=== PATIENT | female | born 1955 | race Caucasian/White ===

== ENCOUNTER 2018-11-01 12:01 | Emergency (ER) | payer OTHER ==
[2018-11-01 12:36] VITALS: BP 135/82; RESP 20; TEMP 98.2
[2018-11-01] MEDS ORDERED: methylPREDNISolone SOD SUCCI 125 MG/2 ML VIAL IV STA (13:27)
[2018-11-01] MEDS ORDERED: IPRATROPIUM-ALBUTEROL 3 ML NEB INHALATION STA (13:27)
--- NOTE | 2018-11-01 13:29 | ED ---
General Adult HPI - General Chief complaint: Shortness of Breath Stated complaint: SOB, chest pain Time Seen by Provider: 11/01/18 13:06 Source: patient, RN notes reviewed Mode of arrival: wheelchair Limitations: no limitations - History of Present Illness Initial comments: Patient is a pleasant 63-year-old female presenting to the emergency department with difficulty in breathing. Patient with chronic COPD and only 20% lung function. Symptoms have been present for years, somewhat worse lately. Patient has a lot of fatigue with any exertion. Patient also complains of chest heaviness which is also been chronic for years. Chest heaviness has not been changed. Patient is becoming frustrated with her symptoms. No associated nausea or diaphoresis. No fevers. Occasional cough. - Related Data Home Medications Medication Instructions Recorded Confirmed Albuterol Nebulized [Ventolin 2.5 mg INHALATION RT-Q4H PRN 11/01/18 11/01/18 Nebulized] Albuterol Sulfate [Proair Hfa] 2 puff INHALATION RT-Q6H PRN 11/01/18 11/01/18 Mometasone/Formoterol [Dulera 100 1 puff INHALATION RT-BID 11/01/18 11/01/18 Mcg/5 Mcg Inhaler] Montelukast [Singulair] 10 mg PO HS 11/01/18 11/01/18 Tiotropium [place] [Spiriva] 1 cap INHALATION RT-DAILY 11/01/18 11/01/18 Previous Rx's Medication Instructions Recorded predniSONE 20 mg PO BID #10 tab 11/01/18 Allergies Allergy/AdvReac Type Severity Reaction Status Date / Time Milk Containing Products Allergy Unknown Verified 11/01/18 13:17 [Dairy] Review of Systems ROS Statement: Those systems with pertinent positive or pertinent negative responses have been documented in the HPI. ROS Other: All systems not noted in ROS Statement are negative. Constitutional: Denies: fever Eyes: Denies: eye pain ENT: Denies: ear pain Respiratory: Reports: as per HPI, dyspnea Cardiovascular: Reports: as per HPI, chest pain Endocrine: Reports: fatigue Gastrointestinal: Denies: nausea Genitourinary: Denies: dysuria Musculoskeletal: Denies: back pain Skin: Denies: rash Neurological: Denies: weakness Past Medical History Past Medical History: COPD History of Any Multi-Drug Resistant Organisms: None Reported Past Surgical History: Section Past Psychological History: Unable to Obtain Smoking Status: Former smoker Past Alcohol Use History: None Reported Past Drug Use History: None Reported - Past Family History Father Family Medical History: Unable to Obtain Mother Family Medical History: Unable to Obtain General Exam Limitations: no limitations General appearance: alert, in no apparent distress Head exam: Present: atraumatic Eye exam: Present: normal appearance Neck exam: Present: normal inspection Respiratory exam: Present: accessory muscle use, decreased breath sounds Cardiovascular Exam: Present: regular rate, normal rhythm GI/Abdominal exam: Present: soft. Absent: tenderness Extremities exam: Present: normal inspection. Absent: pedal edema, calf tenderness Neurological exam: Present: alert Psychiatric exam: Present: normal affect, normal mood Skin exam: Present: normal color Course Vital Signs 11/01/18 11/01/18 11/01/18 12:32 14:15 14:26 Temperature 98.2 F Pulse Rate 76 76 72 Respiratory 20 Rate Blood Pressure 135/82 O2 Sat by Pulse 98 Oximetry Medical Decision Making - Medical Decision Making Patient reevaluated and resting comfortably in bed. Patient is still using some accessory muscles with respirations. Patient is advised admission however refuses. Patient states this is the way she always breathes. Patient states none of her complaints are new and requests discharge home. Patient is hesitant to take steroids however is agreeable to a prescription for symptoms worsen. - Lab Data Result diagrams: 11/01/18 13:30 11/01/18 13:30 Lab Results 11/01/18 11/01/18 11/01/18 Range/Units 13:30 13:30 13:30 WBC 6.9 (3.8-10.6) k/uL RBC 4.76 (3.80-5.40) m/uL Hgb 14.5 (11.4-16.0) gm/dL Hct 43.1 (34.0-46.0) % MCV 90.7 (80.0-100.0) fL MCH 30.5 (25.0-35.0) pg MCHC 33.6 (31.0-37.0) g/dL RDW 14.6 (11.5-15.5) % Plt Count 217 (150-450) k/uL Neutrophils % 68 % Lymphocytes % 22 % Monocytes % 5 % Eosinophils % 2 % Basophils % 1 % Neutrophils # 4.6 (1.3-7.7) k/uL Lymphocytes # 1.5 (1.0-4.8) k/uL Monocytes # 0.4 (0-1.0) k/uL Eosinophils # 0.2 (0-0.7) k/uL Basophils # 0.1 (0-0.2) k/uL PT 11.0 (9.0-12.0) sec INR 1.0 (<1.2) APTT 25.9 (22.0-30.0) sec Sodium 138 (137-145) mmol/L Potassium 4.5 (3.5-5.1) mmol/L Chloride 98 (98-107) mmol/L Carbon Dioxide 27 (22-30) mmol/L Anion Gap 13 mmol/L BUN 13 (7-17) mg/dL Creatinine 0.66 (0.52-1.04) mg/dL Est GFR (CKD-EPI)AfAm >90 (>60 ml/min/1.73 sqM) Est GFR (CKD-EPI)NonAf >90 (>60 ml/min/1.73 sqM) Glucose 110 H (74-99) mg/dL Calcium 9.7 (8.4-10.2) mg/dL Total Bilirubin 0.8 (0.2-1.3) mg/dL AST 30 (14-36) U/L ALT 24 (9-52) U/L Alkaline Phosphatase 55 (38-126) U/L Troponin I (0.000-0.034) ng/mL Total Protein 8.4 H (6.3-8.2) g/dL Albumin 4.8 (3.5-5.0) g/dL 11/01/18 Range/Units 13:30 WBC (3.8-10.6) k/uL RBC (3.80-5.40) m/uL Hgb (11.4-16.0) gm/dL Hct (34.0-46.0) % MCV (80.0-100.0) fL MCH (25.0-35.0) pg MCHC (31.0-37.0) g/dL RDW (11.5-15.5) % Plt Count (150-450) k/uL Neutrophils % % Lymphocytes % % Monocytes % % Eosinophils % % Basophils % % Neutrophils # (1.3-7.7) k/uL Lymphocytes # (1.0-4.8) k/uL Monocytes # (0-1.0) k/uL Eosinophils # (0-0.7) k/uL Basophils # (0-0.2) k/uL PT (9.0-12.0) sec INR (<1.2) APTT (22.0-30.0) sec Sodium (137-145) mmol/L Potassium (3.5-5.1) mmol/L Chloride (98-107) mmol/L Carbon Dioxide (22-30) mmol/L Anion Gap mmol/L BUN (7-17) mg/dL Creatinine (0.52-1.04) mg/dL Est GFR (CKD-EPI)AfAm (>60 ml/min/1.73 sqM) Est GFR (CKD-EPI)NonAf (>60 ml/min/1.73 sqM) Glucose (74-99) mg/dL Calcium (8.4-10.2) mg/dL Total Bilirubin (0.2-1.3) mg/dL AST (14-36) U/L ALT (9-52) U/L Alkaline Phosphatase (38-126) U/L Troponin I <0.012 (0.000-0.034) ng/mL Total Protein (6.3-8.2) g/dL Albumin (3.5-5.0) g/dL - Radiology Data Radiology results: image reviewed (Chest x-ray shows no acute cardio pulmonary process. Advanced bullous emphysematous changes.) Disposition Clinical Impression: Acute exacerbation of chronic obstructive airways disease Disposition: HOME SELF-CARE Condition: Stable Instructions (If sedation given, give patient instructions): COPD (Chronic Obstructive Pulmonary Disease) (ED) Additional Instructions: Please follow-up with your primary care doctor as well as your lung doctor in the next couple days for recheck. Return for difficulty breathing, chest pain, fevers, worsening symptoms or other concerns. Steroid prescription has been sent to [facility]. Prescriptions: predniSONE 20 mg PO BID #10 tab Is patient prescribed a controlled substance at d/c from ED?: No Referrals: Rose Smith MD [STAFF PHYSICIAN] - 1-2 days Facundo Panda MD [STAFF PHYSICIAN] - 1-2 days Time of Disposition: 15:54
[2018-11-01 13:47] LABS: Basophils # (A) 0.1 k/uL (0-0.2); Basophils % (A) 1 %; Eosinophils # (A) 0.2 k/uL (0-0.7); Eosinophils % (A) 2 %; HCT 43.1 % (34.0-46.0); HGB 14.5 gm/dL (11.4-16.0); Lymphocytes # (A) 1.5 k/uL (1.0-4.8); Lymphocytes % (A) 22 %; MCH 30.5 pg (25.0-35.0); MCHC 33.6 g/dL (31.0-37.0); MCV 90.7 fL (80.0-100.0); Mean Platelet Volume 7.1; Monocytes # (A) 0.4 k/uL (0-1.0); Monocytes % (A) 5 %; Neutrophils # (A) 4.6 k/uL (1.3-7.7); Neutrophils % (A) 68 %; Platelet Count 217 k/uL (150-450); RBC 4.76 m/uL (3.80-5.40); RDW 14.6 % (11.5-15.5); WBC 6.9 k/uL (3.8-10.6)
[2018-11-01 14:11] LABS: ALT 24 U/L (9-52); AST 30 U/L (14-36); African American GFR (CKD) >90 (>60 ml/min/1.73 sqM); Albumin 4.8 g/dL (3.5-5.0); Alkaline Phosphatase 55 U/L (38-126); Anion Gap 13 mmol/L; Blood Urea Nitrogen 13 mg/dL (7-17); Calcium 9.7 mg/dL (8.4-10.2); Carbon Dioxide 27 mmol/L (22-30); Chloride 98 mmol/L (98-107); Glucose 110 mg/dL (74-99); Sodium 138 mmol/L (137-145); Total Bilirubin 0.8 mg/dL (0.2-1.3); Total Protein 8.4 g/dL (6.3-8.2)
[2018-11-01 14:12] LABS: Potassium 4.5 mmol/L (3.5-5.1)
[2018-11-01 14:20] LABS: Partial Thromboplastin Time 25.9 sec (22.0-30.0)
[2018-11-01 14:27] VITALS: PULSE 72
--- NOTE | 2018-11-01 15:09 | XR ---
EXAMINATION TYPE: XR chest 2V DATE OF EXAM: 11/01/2018 COMPARISON: 05/29/2016 HISTORY: Shortness of breath TECHNIQUE: Frontal and lateral views of the chest are obtained. FINDINGS: There is pulmonary hyperinflation and extensive emphysematous changes of the lungs with nu merous bulla seen. There is enlargement of the horacio chronically that likely relates to pulmonary juan luis ry hypertension. Narrowing of the mediastinum is on the basis of COPD. Mild multilevel degenerative c hanges of the spine. No new focal consolidation, pleural effusion or pneumothorax. Generalized osseou s demineralization. Patient's nipple shadows overlie the chest on the frontal view. IMPRESSION: No acute cardiopulmonary pathology, however there is advanced bullous emphysematous egan ges of the lungs.
== END 2018-11-01 16:14 | disposition home or self-care (01) ==
LOC: EC 12:01
DX: J44.1 Chronic obstructive pulmonary disease with (acute) exacerbation (principal); Z79.899 Other long term (current) drug therapy; Z91.011 Allergy to milk products; Z87.891 Personal history of nicotine dependence
CPT/HCPCS: 36415; 94640; 93005; 80053; 84484; 85025; 85610; 85730; 71046; 99285; 96374; J2930

== ENCOUNTER 2021-04-19 15:29 | Inpatient (IN) | payer OTHER ==
[2021-04-19] MEDS ORDERED: ALBUTEROL HFA INHALER INHALATION STA (16:14)
[2021-04-19] MEDS ORDERED: methylPREDNISolone SOD SUCCI 125 MG/2 ML VIAL IV STA (16:14)
[2021-04-19] MEDS ORDERED: SODIUM CHLORIDE 0.9% 500 ML 500 ML IV STA (16:14)
[2021-04-19] MEDS ORDERED: IPRATROPIUM-ALBUTEROL 3 ML NEB INHALATION STA (16:14)
[2021-04-19 16:40] LABS: Basophils % (A) 1 %; Eosinophils # (A) 0.1 k/uL (0-0.7); Eosinophils % (A) 2 %; HCT 34.6 % (34.0-46.0); HGB 10.9 gm/dL (11.4-16.0); Hypochromasia Slight; Lymphocytes # (A) 0.7 k/uL (1.0-4.8); Lymphocytes % (A) 12 %; MCH 29.9 pg (25.0-35.0); MCHC 31.6 g/dL (31.0-37.0); MCV 94.6 fL (80.0-100.0); Mean Platelet Volume 7.7; Monocytes # (A) 0.4 k/uL (0-1.0); Monocytes % (A) 7 %; Neutrophils # (A) 4.6 k/uL (1.3-7.7); Neutrophils % (A) 77 %; Platelet Count 220 k/uL (150-450); RBC 3.65 m/uL (3.80-5.40); WBC 5.9 k/uL (3.8-10.6)
[2021-04-19] MEDS ORDERED: ONDANSETRON 4 MG/2 ML VIAL IM STA (16:42)
[2021-04-19 16:48] LABS: ALT 12 U/L (4-34); AST 27 U/L (14-36); African American GFR (CKD) >90 (>60 ml/min/1.73 sqM); Alkaline Phosphatase 47 U/L (38-126); Blood Urea Nitrogen 15 mg/dL (7-17); Calcium 9.3 mg/dL (8.4-10.2); Chloride 92 mmol/L (98-107); Glucose 104 mg/dL (74-99); Magnesium 1.8 mg/dL (1.6-2.3); Non-African American GFR(CKD) >90 (>60 ml/min/1.73 sqM); Potassium 4.2 mmol/L (3.5-5.1); Sodium 140 mmol/L (137-145); Total Bilirubin 0.5 mg/dL (0.2-1.3); Total Protein 6.8 g/dL (6.3-8.2)
[2021-04-19 16:54] LABS: Anion Gap 6 mmol/L; Partial Thromboplastin Time 24.2 sec (22.0-30.0); Prothrombin Time 11.2 sec (9.0-12.0)
[2021-04-19 17:07] LABS: Carbon Dioxide 42 mmol/L (22-30)
[2021-04-19 17:16] LABS: Influenza A Not Detected (Not Detectd); Influenza B Not Detected (Not Detectd)
--- NOTE | 2021-04-19 17:29 | XR ---
EXAMINATION TYPE: XR chest 2V DATE OF EXAM: 04/19/2021 COMPARISON: November 01, 2018 HISTORY: Short of breath TECHNIQUE: Single view FINDINGS: There is pulmonary hyperinflation with flattening of the diaphragm. Heart size is normal. T here are no hilar masses. There are chest leads. IMPRESSION: COPD. No acute lung disease. No change.
[2021-04-19] MEDS ORDERED: METOCLOPRAMIDE 5 MG/ML 2 ML VIAL IVP STA (18:13)
--- NOTE | 2021-04-19 18:30 | CT ---
EXAMINATION TYPE: CT chest angio for PE DATE OF EXAM: 04/19/2021 COMPARISON: HISTORY: Difficulty breathing. CT DLP: 248.7 mGycm Automated exposure control for dose reduction was used. CONTRAST: Performed with IV Contrast, patient injected with 100ml mL of Isovue 370. Images obtained from the thoracic inlet to the diaphragm with IV contrast. There are Three-D postproc essed images. There is diffuse patchy pulmonary emphysema. There is reticular infiltrates in the posterior lung fie lds. Heart size is normal. There is no pericardial effusion. There are no hilar masses. There is no m ediastinal adenopathy. There is no evidence of filling defect in the pulmonary arteries. Thoracic aor ta is atheromatous. The ascending aorta measures 3.2 cm. Thoracic spine is intact. Sternum is intact. IMPRESSION: No evidence of pulmonary embolism. Bullous pulmonary emphysema and interstitial pulmonary fibrotic changes. There is clearing of the inf iltrate at the lung bases compared to the old exam.
--- NOTE | 2021-04-19 18:32 | ED ---
General Adult HPI - General Chief complaint: Shortness of Breath Stated complaint: TUTU Time Seen by Provider: 04/19/21 15:59 Source: patient, EMS, RN notes reviewed, old records reviewed Mode of arrival: EMS Limitations: physical limitation - History of Present Illness Initial comments: Patient is a 65-year-old female with past medical history remarkable for chronic COPD on 4 L nasal cannula who presents emergency department over concern for somewhat worsening shortness of breath over the last few days. She states that over the last few weeks she has been chronically having weakness, shortness of breath. She has been attempting to use her updraft at home without much improvement. States she has some mild nasal drainage. Denies any Covid vacc inations. Was vaccinated for influenza. Endorses occasional cough. Does not follow up with a business intern. Seems to get short of breath with any exertion. Is concerned regarding this. His no other acute complaints at this time. No history of blood clots. No cardiac history. Like to be evaluated for her pulmonary complaints. - Related Data Home Medications Medication Instructions Recorded Confirmed Albuterol Nebulized [Ventolin 2.5 mg INHALATION RT-QID PRN 11/01/18 04/19/21 Nebulized] Albuterol Sulfate [Proair Hfa] 2 puff INHALATION RT-Q6H PRN 11/01/18 04/19/21 Montelukast [Singulair] 10 mg PO HS 11/01/18 04/19/21 Aspirin EC [Ecotrin Low Dose] 81 mg PO DAILY 04/19/21 04/19/21 Esomeprazole Magnesium [NexIUM 20 mg PO DAILY 04/19/21 04/19/21 24Hr] Fluticasone Propionate [Flovent 1 puff INHALATION RT-BID PRN 04/19/21 04/19/21 Hfa 220 mcg] rOPINIRole HCL [Requip] 0.5 mg PO HS 04/19/21 04/19/21 Allergies Allergy/AdvReac Type Severity Reaction Status Date / Time Milk Containing Products Allergy Unknown Verified 04/19/21 17:17 [Dairy] Review of Systems ROS Statement: Those systems with pertinent positive or pertinent negative responses have been documented in the HPI. Review of Systems: CONST: Denies fever EYES: Denies blurry vision ENT: Denies nasal congestion C/V: Denies Chest pain RESP: Endorses worsening exertional dyspnea. GI: Denies abdominal pain : Denies dysuria SKIN: Denies rash. MSK: Denies joint pain. NEURO: Denies headache ROS Other: All systems not noted in ROS Statement are negative. Past Medical History Past Medical History: COPD Additional Past Medical History / Comment(s): Rhinonitis, restless leg syndrome, History of Any Multi-Drug Resistant Organisms: None Reported Past Surgical History: Section Past Psychological History: Anxiety Smoking Status: Former smoker Past Alcohol Use History: None Reported Past Drug Use History: None Reported - Past Family History Father Family Medical History: Unable to Obtain Mother Family Medical History: Unable to Obtain General Exam - General Exam Comments Initial Comments: General: Appears in no acute distress. HEAD: Normal with no signs of head trauma. EYES: PERRLA, EOMI, conjunctiva normal, no discharge. ENT: Hearing grossly intact, normal oropharynx. RESPIRATORY: No obvious wheezing. She is moving breath sounds bilaterally but it is reduced. No obvious rhonchi. Not Hypoxic on her normal 3-4 L oxygen via nasal cannula. No increased work of breathing. C/V: Regular rate and rhythm. S1 and S2 auscultated, no edema, peripheral pulses 2+ and intact throughout ABD: Abd is soft, nontender, nondistended EXT: Normal range of motion, no obvious deformity SKIN: No rashes or lesions observed on exposed skin. NEURO: Alert and oriented times 4 Limitations: physical limitation Course Vital Signs 04/19/21 04/19/21 04/19/21 15:30 15:40 16:43 Temperature 97.0 F L Pulse Rate 95 85 Respiratory 22 18 Rate Blood Pressure 171/84 149/75 O2 Sat by Pulse 96 96 Oximetry 04/19/21 04/19/21 04/19/21 17:01 17:10 17:43 Temperature Pulse Rate 84 88 87 Respiratory 18 18 18 Rate Blood Pressure 125/75 O2 Sat by Pulse 97 Oximetry 04/19/21 19:00 Temperature Pulse Rate 88 Respiratory 18 Rate Blood Pressure 128/73 O2 Sat by Pulse 98 Oximetry Procedures - [place] Protocol (Time Out) Nurse: Pushpa Higuera Medical Decision Making - Medical Decision Making Based on the patient's presentation and physical exam, I'm concerned for COPD exacerbation, but cannot rule out infectious or cardiopulmonary cause for her worsening symptoms. It could be an does seem to be a likely chronic process. She'll be treated for her COPD exacerbation with IV steroids and breathing treatments. We will obtain Covid and flu swabs. Cardio pulmonary workup with labs will be obtained including d-dimer and BNP. Chest x-ray will be obtained. She was in agreement this plan. She'll be given Zofran for nausea. EKG showed no signs of acute ischemia. No change when compared to prior EKGs. Chest x-ray revealed no acute lung disease. Laboratory studies were remarkable for a very mild normocytic anemia with a hemoglobin of 10.9 which appears to be chronic. D-dimer is slightly elevated to 0.71. Laboratory studies are remarkable for an elevated CO2 to 42. Troponin is negative. BNP is negative. Covid and flu swabs are negative. Remainder the workup is unremarkable. Due to the patient's elevated d-dimer, I did recommend that we obtain CT angiogram to rule out pulmonary embolism. She was in agreement this plan. We did review the other laboratory studies and imaging. Lung sounds are slightly improved at this time. DuoNeb will be ordered for her. CT angiogram revealed no acute pulmonary embolism. There is pulmonary emphysema as well as interstit ial pulmonary fibrotic changes. I discussed with her that her chronic disease may be getting worse and which is why she is having worsening shortness of breath. If she does not follow up with pulmonology, still appears to be having a COPD exacerbation, would like to admitted to the hospital for further treatment. She was in agreement this plan. We will continue IV steroids and breathing treatments. Consult will be placed to Dr. Staton of pulmonology. Patient was in agreement this plan. I spoke with [facility] of [facility] who accepted the patient. Patient was therefore admitted to Dr. Cuba in stable condition. - Lab Data Result diagrams: 04/19/21 16:27 04/19/21 16:27 Lab Results 04/19/21 04/19/21 04/19/21 Range/Units 16:27 16:27 16:27 WBC 5.9 (3.8-10.6) k/uL RBC 3.65 L (3.80-5.40) m/uL Hgb 10.9 L (11.4-16.0) gm/dL Hct 34.6 (34.0-46.0) % MCV 94.6 (80.0-100.0) fL MCH 29.9 (25.0-35.0) pg MCHC 31.6 (31.0-37.0) g/dL RDW 13.0 (11.5-15.5) % Plt Count 220 (150-450) k/uL MPV 7.7 Neutrophils % 77 % Lymphocytes % 12 % Monocytes % 7 % Eosinophils % 2 % Basophils % 1 % Neutrophils # 4.6 (1.3-7.7) k/uL Lymphocytes # 0.7 L (1.0-4.8) k/uL Monocytes # 0.4 (0-1.0) k/uL Eosinophils # 0.1 (0-0.7) k/uL Basophils # 0.0 (0-0.2) k/uL Hypochromasia Slight PT 11.2 (9.0-12.0) sec INR 1.0 (<1.2) APTT 24.2 (22.0-30.0) sec D-Dimer 0.71 H (<0.60) mg/L FEU Sodium 140 (137-145) mmol/L Potassium 4.2 (3.5-5.1) mmol/L Chloride 92 L (98-107) mmol/L Carbon Dioxide 42 H* (22-30) mmol/L Anion Gap 6 mmol/L BUN 15 (7-17) mg/dL Creatinine 0.58 (0.52-1.04) mg/dL Est GFR (CKD-EPI)AfAm >90 (>60 ml/min/1.73 sqM) Est GFR (CKD-EPI)NonAf >90 (>60 ml/min/1.73 sqM) Glucose 104 H (74-99) mg/dL Plasma Lactic Acid Kelvin (0.7-2.0) mmol/L Calcium 9.3 (8.4-10.2) mg/dL Magnesium 1.8 (1.6-2.3) mg/dL Total Bilirubin 0.5 (0.2-1.3) mg/dL AST 27 (14-36) U/L ALT 12 (4-34) U/L Alkaline Phosphatase 47 (38-126) U/L Troponin I (0.000-0.034) ng/mL NT-Pro-B Natriuret Pep pg/mL Total Protein 6.8 (6.3-8.2) g/dL Albumin 4.0 (3.5-5.0) g/dL Influenza Type A (PCR) (Not Detectd) Influenza Type B (PCR) (Not Detectd) RSV (PCR) (Not Detectd) SARS-CoV-2 (PCR) (Not Detectd) 04/19/21 04/19/21 04/19/21 Range/Units 16:27 16:27 16:27 WBC (3.8-10.6) k/uL RBC (3.80-5.40) m/uL Hgb (11.4-16.0) gm/dL Hct (34.0-46.0) % MCV (80.0-100.0) fL MCH (25.0-35.0) pg MCHC (31.0-37.0) g/dL RDW (11.5-15.5) % Plt Count (150-450) k/uL MPV Neutrophils % % Lymphocytes % % Monocytes % % Eosinophils % % Basophils % % Neutrophils # (1.3-7.7) k/uL Lymphocytes # (1.0-4.8) k/uL Monocytes # (0-1.0) k/uL Eosinophils # (0-0.7) k/uL Basophils # (0-0.2) k/uL Hypochromasia PT (9.0-12.0) sec INR (<1.2) APTT (22.0-30.0) sec D-Dimer (<0.60) mg/L FEU Sodium (137-145) mmol/L Potassium (3.5-5.1) mmol/L Chloride (98-107) mmol/L Carbon Dioxide (22-30) mmol/L Anion Gap mmol/L BUN (7-17) mg/dL Creatinine (0.52-1.04) mg/dL Est GFR (CKD-EPI)AfAm (>60 ml/min/1.73 sqM) Est GFR (CKD-EPI)NonAf (>60 ml/min/1.73 sqM) Glucose (74-99) mg/dL Plasma Lactic Acid Kelvin 0.9 (0.7-2.0) mmol/L Calcium (8.4-10.2) mg/dL Magnesium (1.6-2.3) mg/dL Total Bilirubin (0.2-1.3) mg/dL AST (14-36) U/L ALT (4-34) U/L Alkaline Phosphatase (38-126) U/L Troponin I <0.012 (0.000-0.034) ng/mL NT-Pro-B Natriuret Pep 116 pg/mL Total Protein (6.3-8.2) g/dL Albumin (3.5-5.0) g/dL Influenza Type A (PCR) (Not Detectd) Influenza Type B (PCR) (Not Detectd) RSV (PCR) (Not Detectd) SARS-CoV-2 (PCR) (Not Detectd) 04/19/21 Range/Units 16:29 WBC (3.8-10.6) k/uL RBC (3.80-5.40) m/uL Hgb (11.4-16.0) gm/dL Hct (34.0-46.0) % MCV (80.0-100.0) fL MCH (25.0-35.0) pg MCHC (31.0-37.0) g/dL RDW (11.5-15.5) % Plt Count (150-450) k/uL MPV Neutrophils % % Lymphocytes % % Monocytes % % Eosinophils % % Basophils % % Neutrophils # (1.3-7.7) k/uL Lymphocytes # (1.0-4.8) k/uL Monocytes # (0-1.0) k/uL Eosinophils # (0-0.7) k/uL Basophils # (0-0.2) k/uL Hypochromasia PT (9.0-12.0) sec INR (<1.2) APTT (22.0-30.0) sec D-Dimer (<0.60) mg/L FEU Sodium (137-145) mmol/L Potassium (3.5-5.1) mmol/L Chloride (98-107) mmol/L Carbon Dioxide (22-30) mmol/L Anion Gap mmol/L BUN (7-17) mg/dL Creatinine (0.52-1.04) mg/dL Est GFR (CKD-EPI)AfAm (>60 ml/min/1.73 sqM) Est GFR (CKD-EPI)NonAf (>60 ml/min/1.73 sqM) Glucose (74-99) mg/dL Plasma Lactic Acid Kelvin (0.7-2.0) mmol/L Calcium (8.4-10.2) mg/dL Magnesium (1.6-2.3) mg/dL Total Bilirubin (0.2-1.3) mg/dL AST (14-36) U/L ALT (4-34) U/L Alkaline Phosphatase (38-126) U/L Troponin I (0.000-0.034) ng/mL NT-Pro-B Natriuret Pep pg/mL Total Protein (6.3-8.2) g/dL Albumin (3.5-5.0) g/dL Influenza Type A (PCR) Not Detected (Not Detectd) Influenza Type B (PCR) Not Detected (Not Detectd) RSV (PCR) Not Detected (Not Detectd) SARS-CoV-2 (PCR) Not Detected (Not Detectd) - EKG Data -: EKG Interpreted by Me EKG Comments: 12-lead Electrocardiogram Interpretation Note EKG was reviewed and interpreted by myself. 12-lead ECG performed at 1548 is interpreted by me as revealing normal sinus rhythm at a rate of 80 beats per minute. [place] is normal. [place] interval is 128 ms, QRS durations 101 ms, QTc is 396 ms.. There were no ST or T wave abnormalities to suggest myocardial ischemia or injury. R wave progression across the precordium was satisfactory. By my interpretation this EKG is non-diagnostic for acute ischemia. Disposition Clinical Impression: COPD exacerbation, Pulmonary fibrosis, Chronic respiratory failure with hypoxia Disposition: ADMITTED IP TO THIS HOSP Condition: Stable Referrals: Inez Porras DO [Primary Care Provider] - 1-2 days
[2021-04-19] MEDS ORDERED: IBUPROFEN 800 MG TAB PO STA (19:04)
[2021-04-19] MEDS ORDERED: IBUPROFEN 400 MG TAB PO PRN (19:04)
[2021-04-19] MEDS ORDERED: ONDANSETRON 4 MG/2 ML VIAL IVP PRN (19:04)
[2021-04-19] MEDS ORDERED: NALOXONE 0.4 MG/ML 1 ML VIAL IV PRN (19:04)
[2021-04-19] MEDS ORDERED: FLUTICASONE 110 MCG INHALER INHALATION PRN (19:56)
[2021-04-19] MEDS: IPRATROPIUM-ALBUTEROL 3 ML NEB INHALATION SCH (20:11)
[2021-04-19] MEDS: MONTELUKAST 10 MG TAB PO SCH (21:50)
[2021-04-19] MEDS: methylPREDNISolone SOD SUCCI 40 MG/ML 1 ML VIAL IV SCH (23:16)
[2021-04-19] MEDS: HEPARIN SODIUM,PORCINE/PF 5,000 UNIT/0.5 ML SYRINGE SQ SCH (23:18)
[2021-04-20] MEDS: IPRATROPIUM-ALBUTEROL 3 ML NEB INHALATION SCH ×6 (00:10→20:00)
[2021-04-20] MEDS: methylPREDNISolone SOD SUCCI 40 MG/ML 1 ML VIAL IV SCH ×2 (05:56→11:23)
[2021-04-20] MEDS: ASPIRIN 81 MG PO SCH (07:54)
[2021-04-20] MEDS: HEPARIN SODIUM,PORCINE/PF 5,000 UNIT/0.5 ML SYRINGE SQ SCH ×3 (07:54→23:26)
[2021-04-20] MEDS: PANTOPRAZOLE 40 MG TABLET PO SCH (07:54)
[2021-04-20 10:59] VITALS: BMI 20.3
[2021-04-20 12:04] LABS: Basophils # (A) 0 X 10*3/uL (0.00-0.10); Basophils % (A) 0 %; Eosinophils # (A) 0 X 10*3/uL (0.04-0.35); Eosinophils % (A) 0 %; HCT 36.7 % (37.2-46.3); HGB 10.5 g/dL (12.0-15.0); Immature Grans, Automated 0.2 %; Lymphocytes # (A) 0.36 X 10*3/uL (0.90-5.00); Lymphocytes % (A) 7.1 %; MCH 28.4 pg (27.0-32.0); MCHC 28.6 g/dL (32.0-37.0); MCV 99.2 fL (80.0-97.0); Monocytes # (A) 0.07 X 10*3/uL (0.20-1.00); Monocytes % (A) 1.4 %; NRBC Per 100 WBC 0 /100 WBCS (0.0-0.0); Neutrophils # (A) 4.62 X 10*3/uL (1.80-7.70); Neutrophils % (A) 91.3 %; Platelet Count 209 X 10*3/uL (140-440); RDW 12.1 % (11.5-14.5); WBC 5.06 X 10*3/uL (4.50-10.00)
--- NOTE | 2021-04-20 12:15 | P.HPIM ---
History of Present Illness This is a pleasant 65 years old female with past medical history of COPD/emphysema, GERD, restless leg syndrome, Anxiety Presents with progressive dyspnea over few days associated with calcified little phlegm but no chest pain She quit smoking about 6 years ago and denies alcohol or illicit drugs. Pain or vomiting. No dysuria. No headache or weakness or dizziness or numbness. She is on home oxygen of 4 L/m, currently she is at the same dose at 100% saturation however she's quite tachypneic and she cannot talk because of her dyspnea Labs showing only mild anemia with hemoglobin 10.5, d-dimer is elevated 0.7, carbon dioxide is high at 42, rest of BMP and liver enzymes and troponins are unremarkable Influenza, Walden virus and RSV viruses are not detected CTA of the chest showed no pulmonary embolism but emphysema. With fibrotic changes and bullae EKG showing normal sinus rhythm at 80 BPM with no significant ST-T changes She is started on a bronchodilator, Solu-Medrol 40 mg Review of Systems Review of systems CONSTITUTIONAL: No fever, no malaise, no fatigue. HEENT: No recent visual problems or hearing problems. Denied any sore throat. CARDIOVASCULAR: No orthopnea, PND, no palpitations, no syncope. PULMONARY: No chest wall tenderness cough, no hemoptysis. GASTROINTESTINAL: No diarrhea, no nausea, no vomiting, no abdominal pain. Normoactive bowel sounds. NEUROLOGICAL: No headaches, no weakness, no numbness. HEMATOLOGICAL: Denies any bleeding or petechiae. GENITOURINARY: Denies any burning micturition, frequency, or urgency. MUSCULOSKELETAL/RHEUMATOLOGICAL: Denies any joint pain, swelling, or any muscle pain. ENDOCRINE: Denies any polyuria or polydipsia. Past Medical History Past Medical History: COPD, GERD/Reflux, Pneumonia Additional Past Medical History / Comment(s): Rhinonitis, restless leg syndrome, History of Any Multi-Drug Resistant Organisms: None Reported Past Surgical History: Section Past Anesthesia/Blood Transfusion Reactions: No Reported Reaction Past Psychological History: Anxiety Smoking Status: Former smoker Past Alcohol Use History: None Reported Past Drug Use History: None Reported - Past Family History Father Family Medical History: No Reported History, Unable to Obtain Mother Family Medical History: Unable to Obtain Additional Family Medical History / Comment(s): ckd Medications and Allergies Home Medications Medication Instructions Recorded Confirmed Type Albuterol Nebulized [Ventolin 2.5 mg INHALATION RT-QID PRN 11/01/18 04/19/21 History Nebulized] Albuterol Sulfate [Proair Hfa] 2 puff INHALATION RT-Q6H PRN 11/01/18 04/19/21 History Montelukast [Singulair] 10 mg PO HS 11/01/18 04/19/21 History Aspirin EC [Ecotrin Low Dose] 81 mg PO DAILY 04/19/21 04/19/21 History Esomeprazole Magnesium [NexIUM 20 mg PO DAILY 04/19/21 04/19/21 History 24Hr] Fluticasone Propionate [Flovent 1 puff INHALATION RT-BID PRN 04/19/21 04/19/21 History Hfa 220 mcg] rOPINIRole HCL [Requip] 0.5 mg PO HS 04/19/21 04/19/21 History Allergies Allergy/AdvReac Type Severity Reaction Status Date / Time Milk Containing Products Allergy Unknown Verified 04/19/21 17:17 [Dairy] Physical Exam Vitals: Vital Signs Temp Pulse Pulse Resp BP BP Pulse Ox 04/20/21 08:48 84 04/20/21 08:39 84 04/20/21 07:00 98.3 F 79 18 126/74 100 04/20/21 02:14 98.6 F 82 20 107/73 100 04/19/21 23:00 98.4 F 85 20 115/55 100 04/19/21 21:25 98.3 F 88 18 135/73 98 04/19/21 20:21 89 04/19/21 20:13 87 04/19/21 19:00 88 18 128/73 98 04/19/21 17:43 87 18 125/75 97 04/19/21 17:10 88 18 04/19/21 17:01 84 18 04/19/21 16:43 85 18 149/75 96 04/19/21 15:40 22 04/19/21 15:30 97.0 F L 95 22 171/84 96 Intake and Output 04/19/21 04/20/21 04/20/21 22:59 06:59 14:59 Intake Total 120 Balance 120 Intake: Oral 120 Other: # Voids 2 Weight 58.967 kg 58.967 kg GENERAL: The patient is alert and oriented x3, not in any acute distress. Well developed, well nourished. HEENT: Pupils are round and equally reacting to light. EOMI. No scleral icterus. No conjunctival pallor. Normocephalic, atraumatic. No pharyngeal erythema. No thyromegaly. CARDIOVASCULAR: S1 and S2 present. No murmurs, rubs, or gallops. -PULMONARY: Chest is clear to auscultation, no wheezing or crackles. Decreased limited air entry on both sides ABDOMEN: Soft, nontender, nondistended, normoactive bowel sounds. No palpable organomegaly. MUSCULOSKELETAL: No joint swelling or deformity. EXTREMITIES: No cyanosis, clubbing, or pedal edema. NEUROLOGICAL: Gross neurological examination did not reveal any focal deficits. SKIN: No rashes. no petechiae. Results CBC & Chem 7: 04/20/21 06:52 04/19/21 16:27 Labs: Abnormal Lab Results - Last 24 Hours (Table) 04/19/21 04/19/21 04/19/21 Range/Units 16:27 16:27 16:27 RBC 3.65 L (3.80-5.40) m/uL Hgb 10.9 L (11.4-16.0) gm/dL Lymphocytes # 0.7 L (1.0-4.8) k/uL D-Dimer 0.71 H (<0.60) mg/L FEU Chloride 92 L (98-107) mmol/L Carbon Dioxide 42 H* (22-30) mmol/L Glucose 104 H (74-99) mg/dL Thrombosis Risk Factor Assmnt - Choose All That Apply Any of the Below Risk Factors Present?: Yes Each Factor Represents 1 point: Abnormal pulmonary function (COPD) Other Risk Factors: Yes Each Risk Factor Represents 2 Points: Age 61-74 years Other congenital or acquired thrombophilia - If yes, enter type in comment: No Thrombosis Risk Factor Assessment Total Risk Factor Score: 3 Thrombosis Risk Factor Assessment Level: Moderate Risk Assessment and Plan Assessment: Acute COPD exacerbation Chronic hypoxic respiratory failure Anxiety History of restless leg syndrome History of GERD Plan: This is a pleasant 65 years old female who presents with COPD exacerbation Continue with steroids, IV salmeterol Pulmonary consult Labs and medication were reviewed.. Continue same treatment. Continue with symptomatic treatment. Resume home medication. Monitor lytes and vitals. DVT and GI prophylaxis. Further recommendationsas per clinical course of the patient DVT prophylaxis: Subcutaneous heparin GI Prophylaxis: Pepcid PT/OT: Pending
[2021-04-20 12:17] LABS: Albumin 4.5 g/dL (3.8-4.9); Albumin/Globulin Ratio 1.93 (1.60-3.17); BUN/Creat Ratio 19.78 Ratio (12.00-20.00); Blood Urea Nitrogen 12.4 mg/dL (9.0-27.0); Calcium 9.7 mg/dL (8.7-10.3); Carbon Dioxide 38.8 mmol/L (20.0-27.5); Globulin 2.3 g/dL (1.6-3.3); Non-African American GFR(CKD) 94.9 (60.0-200.0); Potassium 4.8 mmol/L (3.5-5.5); Total Bilirubin 0.3 mg/dL (0.30-1.20); Total Protein 6.8 g/dL (6.2-8.2)
[2021-04-20] MEDS: INSULIN ASPART (NovoLOG) 100 UNIT/ML VIAL SQ SCH ×3 (12:27→21:34)
[2021-04-20 12:28] LABS: Glucose,Whole Blood 163 mg/dL (75-99)
--- NOTE | 2021-04-20 15:01 | P.CNPUL ---
History of Present Illness Consult date: 04/20/21 Requesting physician: [place] Reason for consult: dyspnea, COPD, abnormal CXR/CT Chief complaint: Shortness of breath History of present illness: This is a pleasant 65-year-old female patient who follows with Dr. Snowden as her primary care provider. She has a history of anxiety, restless leg syndrome, gastroesophageal reflux disease, dementia. She also has a history of severe oxygen dependent chronic obstructive pulmonary disease and is on home oxygen at 4 L/m per nasal cannula. She has smoked for approximately 47 years at 1 pack per day. She quit at age 61. She is maintained on pro-air, Singulair, Ventolin in the outpatient setting. She has not been seen in our office. She was seen here in the prior hospitalization in 2017. At that time she was noted to have severe emphysematous changes on her chest x-ray. She states she was in hospice at one point. She presented here to the emergency room yesterday with a 2-3 day history of increasing shortness of breath. Chest x-ray reveals evidence of COPD but no acute pulmonary process. CT angiogram ruled out pulmonary embolism. There is bolus pulmonary emphysema and interstitial pulmonary fibrotic changes. White count 5.0. Hemoglobin 10.5. D-dimer 0.71. Sodium 142. Potassium 4.8. BUN 12. Creatinine 0.6. Blood glucose 155. AST 19. A LT 15. Walden virus by PCR not detected. Influenza screen negative. RSV negative. She is seen today in consultation on the regular medical floor. She is currently sitting up in bed. Awake and alert in no acute distress. Maintaining O2 saturations in the 90s on 4 L/m per nasal cannula. Lungs sounds are very diminished. She was initiated on IV Solu-Medrol, DuoNeb inhalations, Singulair. Review of Systems REVIEW OF SYSTEMS: CONSTITUTIONAL: Denies any recent significant weight loss or weight gain. EYES: Denies change in vision. EARS, NOSE, MOUTH, THROAT: Denies headaches, denies sore throat. CARDIOVASCULAR: Denies chest pain, palpitations or syncopal episodes. RESPIRATORY: Positive for shortness of breath, cough, congestion no hemoptysis. GASTROINTESTINAL: Denies change in appetite, denies abdominal pain GENITOURINARY: Denies hematuria, denies infections. MUSKULOSKELETAL: Denies pain, denies swelling. INTEGUMENTARY: Denies rash, denies eczema. NEUROLOGICAL: Positive for memory loss, no recent seizure activity. PSYCHIATRIC: Denies anxiety, denies depression. HEMATOLOGIC/LYMPHATIC: Denies anemia, denies enlarged lymph nodes. Past Medical History Past Medical History: COPD, GERD/Reflux, Pneumonia Additional Past Medical History / Comment(s): Rhinonitis, restless leg syndrome, History of Any Multi-Drug Resistant Organisms: None Reported Past Surgical History: Section Past Anesthesia/Blood Transfusion Reactions: No Reported Reaction Past Psychological History: Anxiety Smoking Status: Former smoker Past Alcohol Use History: None Reported Past Drug Use History: None Reported - Past Family History Father Family Medical History: No Reported History, Unable to Obtain Mother Family Medical History: Unable to Obtain Additional Family Medical History / Comment(s): ckd Medications and Allergies Home Medications Medication Instructions Recorded Confirmed Type Albuterol Nebulized [Ventolin 2.5 mg INHALATION RT-QID PRN 11/01/18 04/19/21 History Nebulized] Albuterol Sulfate [Proair Hfa] 2 puff INHALATION RT-Q6H PRN 11/01/18 04/19/21 History Montelukast [Singulair] 10 mg PO HS 11/01/18 04/19/21 History Aspirin EC [Ecotrin Low Dose] 81 mg PO DAILY 04/19/21 04/19/21 History Esomeprazole Magnesium [NexIUM 20 mg PO DAILY 04/19/21 04/19/21 History 24Hr] Fluticasone Propionate [Flovent 1 puff INHALATION RT-BID PRN 04/19/21 04/19/21 History Hfa 220 mcg] rOPINIRole HCL [Requip] 0.5 mg PO HS 04/19/21 04/19/21 History Allergies Allergy/AdvReac Type Severity Reaction Status Date / Time Milk Containing Products Allergy Unknown Verified 04/19/21 17:17 [Dairy] Physical Exam Vitals: Vital Signs Temp Pulse Pulse Resp BP BP Pulse Ox 04/20/21 12:39 84 04/20/21 12:27 80 04/20/21 08:48 84 04/20/21 08:39 84 04/20/21 07:00 98.3 F 79 18 126/74 100 04/20/21 02:14 98.6 F 82 20 107/73 100 04/19/21 23:00 98.4 F 85 20 115/55 100 04/19/21 21:25 98.3 F 88 18 135/73 98 04/19/21 20:21 89 04/19/21 20:13 87 04/19/21 19:00 88 18 128/73 98 04/19/21 17:43 87 18 125/75 97 04/19/21 17:10 88 18 04/19/21 17:01 84 18 04/19/21 16:43 85 18 149/75 96 04/19/21 15:40 22 04/19/21 15:30 97.0 F L 95 22 171/84 96 Intake and Output 04/19/21 04/20/21 04/20/21 22:59 06:59 14:59 Intake Total 120 Balance 120 Intake: Oral 120 Other: # Voids 2 5 Weight 58.967 kg 58.967 kg 58.967 kg GENERAL EXAM: Alert, pleasant 65-year-old female patient, poor historian, on 4 L nasal cannula comfortable in no apparent distress. HEAD: Normocephalic. EYES: Normal reaction of pupils, equal size. NOSE: Clear with pink turbinates. THROAT: No erythema or exudates. NECK: No masses, no JVD. CHEST: No chest wall deformity. LUNGS: Equal air entry with no crackles, wheeze, rhonchi or dullness. Diminished throughout. CVS: S1 and S2 normal with no audible murmur, regular rhythm. ABDOMEN: No hepatosplenomegaly, normal bowel sounds, no guarding or rigidity. SPINE: No scoliosis or deformity SKIN: No rashes CENTRAL NERVOUS SYSTEM: No focal deficits, tone is normal in all 4 extremities. EXTREMITIES: There is no peripheral edema. No clubbing, no cyanosis. Peripheral pulses are intact. Results - Laboratory Findings CBC and BMP: 04/20/21 06:52 04/20/21 06:52 PT/INR, D-dimer PT 11.2 sec (9.0-12.0) 04/19/21 16:27 INR 1.0 (<1.2) 04/19/21 16:27 D-Dimer 0.71 mg/L FEU (<0.60) H 04/19/21 16:27 Abnormal lab findings: Abnormal Labs 04/19/21 04/19/21 04/19/21 16:27 16:27 16:27 RBC 3.65 L Hgb 10.9 L Hct MCV MCHC Lymphocytes # 0.7 L Monocytes # Eosinophils # D-Dimer 0.71 H Chloride 92 L Carbon Dioxide 42 H* Anion Gap Glucose 104 H POC Glucose (mg/dL) 04/20/21 04/20/21 04/20/21 06:52 06:52 12:25 RBC 3.70 L Hgb 10.5 L Hct 36.7 L MCV 99.2 H MCHC 28.6 L Lymphocytes # 0.36 L Monocytes # 0.07 L Eosinophils # 0 L D-Dimer Chloride 95 L Carbon Dioxide 38.8 H Anion Gap 8.00 L Glucose 155 H POC Glucose (mg/dL) 163 H - Diagnostic Findings Chest x-ray: image reviewed CT scan - chest: image reviewed Assessment and Plan Assessment: 1 Acute exacerbation of severe oxygen dependent chronic obstructive pulmonary disease. No clear evidence of pneumonia. Pro-calcitonin pending 2 Chronic hypoxemic respiratory failure secondary to severe chronic obstructive pulmonary disease 3 45+ year pack per day smoking history. Quit approximately 4 years ago 4 history of gastroesophageal reflux disease 5 History of underlying dementia Plan: The patient was seen and evaluated Chest x-ray, CAT scans and labs reviewed Continue DuoNeb inhalations 4 times a day and when necessary Continue IV Solu-Medrol 60 mg every 6 hours Add Pulmicort and Perforomist inhalations twice a day Obtain a pro-calcitonin We will continue to follow and make further recommendations based on her clinical status I, the cosigning physician, performed a history & physical examination of the patient. Lungs sounds are clear, very diminished. Maintaining good O2 saturations in the 90s on 4 L/m per nasal cannula. I discussed the assessment and plan of care with my nurse practitioner, Taylor Diaz. I attest to the above consultation as dictated by her. I have personally seen and examined the patient, performed the documentation and the assessment and plan as written. Number of minutes spent on the visit: 20.
[2021-04-20 17:11] LABS: Glucose,Whole Blood 183 mg/dL (75-99)
[2021-04-20] MEDS: methylPREDNISolone SOD SUCCI 125 MG/2 ML VIAL IV SCH ×2 (17:16→23:26)
[2021-04-20] MEDS: MONTELUKAST 10 MG TAB PO SCH (19:58)
[2021-04-20] MEDS: FORMOTEROL FUMARATE 20 MCG/2 ML NEBU INHALATION SCH (20:00)
[2021-04-20] MEDS: BUDESONIDE 1 MG/2 ML NEBU INHALATION SCH (20:00)
[2021-04-20 20:22] LABS: Glucose,Whole Blood 141 mg/dL (75-99)
[2021-04-21] MEDS: methylPREDNISolone SOD SUCCI 125 MG/2 ML VIAL IV SCH ×4 (06:04→23:56)
[2021-04-21 07:10] LABS: Glucose,Whole Blood 137 mg/dL (75-99)
[2021-04-21] MEDS: INSULIN ASPART (NovoLOG) 100 UNIT/ML VIAL SQ SCH ×4 (07:19→21:25)
[2021-04-21] MEDS: PANTOPRAZOLE 40 MG TABLET PO SCH (07:30)
[2021-04-21] MEDS: ASPIRIN 81 MG PO SCH (07:30)
[2021-04-21] MEDS: HEPARIN SODIUM,PORCINE/PF 5,000 UNIT/0.5 ML SYRINGE SQ SCH ×3 (07:30→23:56)
[2021-04-21] MEDS: BUDESONIDE 1 MG/2 ML NEBU INHALATION SCH ×2 (07:43→20:17)
[2021-04-21] MEDS: IPRATROPIUM-ALBUTEROL 3 ML NEB INHALATION SCH ×4 (07:43→20:17)
[2021-04-21] MEDS: FORMOTEROL FUMARATE 20 MCG/2 ML NEBU INHALATION SCH (07:43)
--- NOTE | 2021-04-21 09:26 | US ---
EXAMINATION TYPE: US venous doppler duplex LE DATE OF EXAM: 04/21/2021 9:11 AM COMPARISON: NONE CLINICAL HISTORY: 65-year-old female Elevated d-dimer. SIDE PERFORMED: Bilateral TECHNIQUE: The lower extremity deep venous system is examined utilizing real time linear array sonog susanne with graded compression, doppler sonography and color-flow sonography. FINDINGS: VESSELS IMAGED: Common Femoral Vein Deep Femoral Vein Greater Saphenous Vein * Femoral Vein Popliteal Vein Small Saphenous Vein * Proximal Calf Veins Posterior tibial veins and peroneal veins (* superficial vessels) Right Leg: Negative for DVT Left Leg: Negative for DVT Senior Research Analyst notes: No DVT seen. IMPRESSION: No evidence for DVT within the bilateral lower extremities imaged from the groin into the calves.
[2021-04-21 11:39] LABS: Glucose,Whole Blood 166 mg/dL (75-99)
[2021-04-21] MEDS: hydrOXYzine HCL 25 MG TAB PO PRN ×2 (12:04→21:39)
--- NOTE | 2021-04-21 14:54 | P.PN ---
Subjective Progress Note Date: 04/21/21 Principal diagnosis: COPD exacerbation. This is a pleasant 65-year-old female patient who follows with Dr. Snowden as her primary care provider. She has a history of anxiety, restless leg syndrome, gastroesophageal reflux disease, dementia. She also has a history of severe oxy gen dependent chronic obstructive pulmonary disease and is on home oxygen at 4 L/m per nasal cannula. She has smoked for approximately 47 years at 1 pack per day. She quit at age 61. She is maintained on pro-air, Singulair, Ventolin in the outpatient setting. She has not been seen in our office. She was seen here in the prior hospitalization in 2017. At that time she was noted to have severe emphysematous changes on her chest x-ray. She states she was in hospice at one point. She presented here to the emergency room yesterday with a 2-3 day history of increasing shortness of breath. Chest x-ray reveals evidence of COPD but no acute pulmonary process. CT angiogram ruled out pulmonary embolism. There is bolus pulmonary emphysema and interstitial pulmonary fibrotic changes. White count 5.0. Hemoglobin 10.5. D-dimer 0.71. Sodium 142. Potassium 4.8. BUN 12. Creatinine 0.6. Blood glucose 155. AST 19. A LT 15. Walden virus by PCR not detected. Influenza screen negative. RSV negative. She is seen today in consultation on the regular medical floor. She is currently sitting up in bed. Awake and alert in no acute distress. Maintaining O2 saturations in the 90s on 4 L/m per nasal cannula. Lungs sounds are very diminished. She was initiated on IV Solu-Medrol, DuoNeb inhalations, Singulair. Progress note dated 04/21/2021. 65-year-old female with a history of severe COPD. The patient was seen yesterday in consultation. She is seen again today in room 635. I'm happy to report that she's feeling much improved. We added duo nebs, long-acting beta agonist and inhaled corticosteroids, and systemic corticosteroids. There were no new labs today. Labs from yesterday and x-rays have been reviewed. Again, the patient feels much improved, feels much less short of breath. She also states that her cough is improved, as is her wheezing. Objective - Vital Signs Vital signs: Vital Signs Temp 98.3 F 04/21/21 14:20 Pulse 93 04/21/21 14:20 Resp 18 04/21/21 14:20 BP 126/74 04/21/21 14:20 Pulse Ox 98 04/21/21 14:20 Intake & Output 04/20/21 04/21/21 04/21/21 18:59 06:59 18:59 Intake Total 240 360 Balance 240 360 Weight 58.967 kg Intake: Oral 240 360 Other: # Voids 5 2 2 - Exam Mild conversational dyspnea, and use of accessory muscles. No audible wheezing. Oriented 3. The patient is on 2 L nasal cannula. HEENT examination is grossly unremarkable. Neck supple. Full range of motion. No adenopathy thyromegaly or neck vein distention. Cardiovascular examination reveals regular rhythm rate. S1-S2 normal. No S3 or S4. No discernible murmur noted. Heart rate 93 bpm. Heart sounds are distant. Lungs reveal severely diminished bilateral breath sounds. Scattered expiratory wheezes and rhonchi are noted. There are no crackles. There is prolongation on forced maneuver. 2 L saturation is 98%. Abdomen soft bowel sounds are heard. No masses or tenderness. Extremities are intact. No cyanosis clubbing or edema. Skin is without rash or lesion. Neurologic examination is brief but nonfocal. - Labs CBC & Chem 7: 04/20/21 06:52 04/20/21 06:52 Labs: Abnormal Lab Results - Last 24 Hours (Table) 04/20/21 04/20/21 04/21/21 Range/Units 17:05 20:19 06:59 POC Glucose (mg/dL) 183 H 141 H 137 H (75-99) mg/dL 04/21/21 Range/Units 11:26 POC Glucose (mg/dL) 166 H (75-99) mg/dL Assessment and Plan Assessment: 1 Acute exacerbation of severe oxygen dependent chronic obstructive pulmonary disease. No clear evidence of pneumonia. Pro-calcitonin pending. 2 Chronic hypoxemic respiratory failure secondary to severe chronic obstructive pulmonary disease. 3 45+ year pack per day smoking history. Quit approximately 4 years ago. 4 history of gastroesophageal reflux disease. 5 History of underlying dementia. Plan: Plan dated 04/21/2021. The patient's chest x-ray and CAT scan were reviewed. Medications, labs, x-rays are reviewed. The patient is on DuoNeb's, 4 times a day and when necessary. In addition, the patient's receiving Solu-Medrol, 60 mg every 6 hours, as well as Pulmicort, and Perforomist twice a day. The patient's pro-calcitonin level is very low. No need for antibiotics at this time. We will continue to follow make recommendations where appropriate. The patient will need an outpatient pulmonary function test. Prognosis is guarded. Time with Patient: Less than 30
[2021-04-21 17:27] LABS: Glucose,Whole Blood 149 mg/dL (75-99)
--- NOTE | 2021-04-21 19:22 | P.PN ---
Subjective This is a pleasant 65 years old female with past medical history of COPD/emphysema, GERD, restless leg syndrome, Anxiety Presents with progressive dyspnea over few days associated with calcified little phlegm but no chest pain She quit smoking about 6 years ago and denies alcohol or illicit drugs. Pain or vomiting. No dysuria. No headache or weakness or dizziness or numbness. She is on home oxygen of 4 L/m, currently she is at the same dose at 100% saturation however she's quite tachypneic and she cannot talk because of her dyspnea Labs showing only mild anemia with hemoglobin 10.5, d-dimer is elevated 0.7, carbon dioxide is high at 42, rest of BMP and liver enzymes and troponins are unremarkable Influenza, Walden virus and RSV viruses are not detected CTA of the chest showed no pulmonary embolism but emphysema. With fibrotic changes and bullae EKG showing normal sinus rhythm at 80 BPM with no significant ST-T changes She is started on a bronchodilator, Solu-Medrol 40 mg 04/21/2021 Patient breathing is easier, today she couldn't talk with no difficulty compared to yesterday. And she has less wheezing. her Vitas looks stable CTA and lick ultrasound are both negative for evidence of clotting disease. The procalcitonin is negative at 0.03. Patient continued on the same treatment for COPD including Solu-Medrol 60 mg. And bronchodilator However patient today feels anxious and I reviewed possible medication and she chose Atarax as needed. Objective - Vital Signs Vital signs: Vital Signs Temp 98.3 F 04/21/21 07:00 Pulse 80 04/21/21 07:57 Resp 18 04/21/21 07:00 BP 131/73 04/21/21 07:00 Pulse Ox 97 04/21/21 07:00 Intake & Output 04/20/21 04/21/21 04/21/21 18:59 06:59 18:59 Intake Total 240 120 Balance 240 120 Weight 58.967 kg Intake: Oral 240 120 Other: # Voids 5 2 - Exam GENERAL: The patient is alert and oriented x3, not in any acute distress. Well developed, well nourished. HEENT: Pupils are round and equally reacting to light. EOMI. No scleral icterus. No conjunctival pallor. Normocephalic, atraumatic. No pharyngeal erythema. No thyromegaly. CARDIOVASCULAR: S1 and S2 present. No murmurs, rubs, or gallops. -PULMONARY: Chest is clear to auscultation, decreased air entry and scattered wheezing, improvement ABDOMEN: Soft, nontender, nondistended, normoactive bowel sounds. No palpable organomegaly. MUSCULOSKELETAL: No joint swelling or deformity. EXTREMITIES: No cyanosis, clubbing, or pedal edema. NEUROLOGICAL: Gross neurological examination did not reveal any focal deficits. SKIN: No rashes. no petechiae. - Labs CBC & Chem 7: 04/20/21 06:52 04/20/21 06:52 Labs: Abnormal Lab Results - Last 24 Hours (Table) 04/20/21 04/20/21 04/20/21 Range/Units 06:52 06:52 12:25 RBC 3.70 L (4.10-5.20) X 10*6/uL Hgb 10.5 L (12.0-15.0) g/dL Hct 36.7 L (37.2-46.3) % MCV 99.2 H (80.0-97.0) fL MCHC 28.6 L (32.0-37.0) g/dL Lymphocytes # 0.36 L (0.90-5.00) X 10*3/uL Monocytes # 0.07 L (0.20-1.00) X 10*3/uL Eosinophils # 0 L (0.04-0.35) X 10*3/uL Chloride 95 L (96-109) mmol/L Carbon Dioxide 38.8 H (20.0-27.5) mmol/L Anion Gap 8.00 L (10.00-18.00) mmol/L Glucose 155 H (70-110) mg/dL POC Glucose (mg/dL) 163 H (75-99) mg/dL 04/20/21 04/20/21 04/21/21 Range/Units 17:05 20:19 06:59 RBC (4.10-5.20) X 10*6/uL Hgb (12.0-15.0) g/dL Hct (37.2-46.3) % MCV (80.0-97.0) fL MCHC (32.0-37.0) g/dL Lymphocytes # (0.90-5.00) X 10*3/uL Monocytes # (0.20-1.00) X 10*3/uL Eosinophils # (0.04-0.35) X 10*3/uL Chloride (96-109) mmol/L Carbon Dioxide (20.0-27.5) mmol/L Anion Gap (10.00-18.00) mmol/L Glucose (70-110) mg/dL POC Glucose (mg/dL) 183 H 141 H 137 H (75-99) mg/dL Assessment and Plan Assessment: Acute COPD exacerbation Chronic hypoxic respiratory failure Anxiety History of restless leg syndrome History of GERD Plan: This is a pleasant 65 years old female who presents with COPD exacerbation Continue with steroids, IV salmeterol Pulmonary consult Labs and medication were reviewed.. Continue same treatment. Continue with symptomatic treatment. Resume home medication. Monitor lytes and vitals. DVT and GI prophylaxis. Further recommendationsas per clinical course of the patie nt DVT prophylaxis: Subcutaneous heparin GI Prophylaxis: Pepcid PT/OT: Pending
[2021-04-21 20:23] LABS: Glucose,Whole Blood 182 mg/dL (75-99)
[2021-04-21] MEDS: MONTELUKAST 10 MG TAB PO SCH (21:26)
[2021-04-22] MEDS: methylPREDNISolone SOD SUCCI 125 MG/2 ML VIAL IV SCH ×2 (05:45→12:19)
[2021-04-22] MEDS: FORMOTEROL FUMARATE 20 MCG/2 ML NEBU INHALATION SCH ×2 (07:21→07:49)
[2021-04-22 07:23] LABS: Glucose,Whole Blood 156 mg/dL (75-99)
[2021-04-22 07:38] VITALS: RESP 18
[2021-04-22] MEDS: BUDESONIDE 1 MG/2 ML NEBU INHALATION SCH (07:49)
[2021-04-22] MEDS: IPRATROPIUM-ALBUTEROL 3 ML NEB INHALATION SCH ×3 (07:49→15:36)
[2021-04-22] MEDS: ASPIRIN 81 MG PO SCH (08:35)
[2021-04-22] MEDS: PANTOPRAZOLE 40 MG TABLET PO SCH (08:36)
[2021-04-22] MEDS: INSULIN ASPART (NovoLOG) 100 UNIT/ML VIAL SQ SCH ×2 (08:36→12:18)
[2021-04-22] MEDS: HEPARIN SODIUM,PORCINE/PF 5,000 UNIT/0.5 ML SYRINGE SQ SCH (08:36)
--- NOTE | 2021-04-22 11:23 | P.PN ---
Subjective Progress Note Date: 04/22/21 Principal diagnosis: Shortness of breath On 04/22/2021 patient seen in follow-up on medical surgical floor, she is sitting up in the bed, she is awake and alert, in no acute distress, she states her breathing is improving, her lung sounds do reveal improvement. Vital signs are stable, on 2 L of oxygen her pulse ox is 97%, her chest x-ray showed no acute pulmonary process, CT angiogram of the chest showed no evidence of PE, progesterone level was negative, patient tested negative for influenza A and B, COVID-19, and RSV. She is currently on Solu-Medrol 60 mg every 6 hours, she is on nebulized bronchodilators, clinically she is improving. Objective - Vital Signs Vital signs: Vital Signs Temp 98.6 F 04/22/21 07:00 Pulse 80 04/22/21 08:10 Resp 18 04/22/21 07:00 BP 136/69 04/22/21 07:00 Pulse Ox 97 04/22/21 07:00 Intake & Output 04/21/21 04/22/21 04/22/21 18:59 06:59 18:59 Intake Total 480 400 240 Balance 480 400 240 Intake: Oral 480 400 240 Other: Voiding Method Toilet # Voids 1 2 - Exam GENERAL EXAM: Alert, very pleasant, 65-year-old white female, on 2 L of oxygen with a pulse ox of 97% comfortable in no apparent distress. HEAD: Normocephalic/atraumatic. EYES: Normal reaction of pupils, equal size. Conjunctiva pink, sclera white. NOSE: Clear with pink turbinates. THROAT: No erythema or exudates. NECK: No masses, no JVD, no thyroid enlargement, no adenopathy. CHEST: No chest wall deformity. Symmetrical expansion. LUNGS: Equal air entry with no crackles, wheeze, rhonchi or dullness. CVS: Regular rate and rhythm, normal S1 and S2, no gallops, no murmurs, no rubs ABDOMEN: Soft, nontender. No hepatosplenomegaly, normal bowel sounds, no guarding or rigidity. EXTREMITIES: No clubbing, no edema, no cyanosis, 2+ pulses and upper and lower extremities. MUSCULOSKELETAL: Muscle strength and tone normal. SPINE: No scoliosis or deformity SKIN: No rashes CENTRAL NERVOUS SYSTEM: Alert and oriented -3. No focal deficits, tone is normal in all 4 extremities. PSYCHIATRIC: Alert and oriented -3. Appropriate affect. Intact judgment and insight. - Labs CBC & Chem 7: 04/20/21 06:52 04/20/21 06:52 Labs: Abnormal Lab Results - Last 24 Hours (Table) 04/21/21 04/21/21 04/21/21 Range/Units 11:26 17:23 20:22 POC Glucose (mg/dL) 166 H 149 H 182 H (75-99) mg/dL 04/22/21 Range/Units 07:07 POC Glucose (mg/dL) 156 H (75-99) mg/dL Assessment and Plan Plan: Assessment: #1. Acute exacerbation of severe oxygen dependent COPD, no evidence of pneumonia, bronchitis level is negative, RSV, influenza A and B and COVID-[address] angiogram negative for PE #2. Chronic hypoxic respiratory failure related to COPD #3. History of nicotine dependence, carries 45+ year pack per day smoking history, quit smoking approximately 4 years ago #4. History of GERD/reflux #5. History of underlying dementia Plan: Patient is improving, she is breathing easier Vital signs have been stable Her IV steroids can be switched to prednisone at discharge Patient already has home O2 and nebulizer machine and treatments at home Increase activity as tolerated From pulmonary perspective she stable for discharge home today with outpatient follow-up with Dr. Staton in the office. She can complete prednisone taper, she has albuterol nebulized treatments at home We recommend Trelegy at discharge if her insurance will cover it If not we recommend Symbicort and Spiriva I performed a history & physical examination of the patient and discussed their management with my nurse practitioner, Nasreen Montalvo. I reviewed the nurse practitioner's note and agree with the documented findings and plan of care. Lung sounds are positive for clear breath sounds throughout the lung chua. The findings and the impression was discussed with the patient. I attest to the documentation by the nurse practitioner. Time with Patient: Less than 30
[2021-04-22 11:42] LABS: Glucose,Whole Blood 144 mg/dL (75-99)
--- NOTE | 2021-04-22 13:54 | P.EN ---
Patient will require 2 L of oxygen via an annual cannula on discharge to manage COPD
[2021-04-22 15:07] VITALS: BP 147/75; TEMP 98.3
[2021-04-22 15:40] VITALS: PULSE 80
[2021-04-22] MEDS: hydrOXYzine HCL 25 MG TAB PO PRN (16:52)
--- NOTE | 2021-04-22 22:53 | P.DS ---
Providers Date of admission: 04/22/21 08:17 Attending physician: Castro Cuba Consults: 04/19/21 19:09 Consult Physician Routine Consulting Provider: Ronald Staton Consult Reason/Comments: COPD exacerbation, pulmonary fibrosis. no pulm follow up Do you want consulting provider notified?: Yes Primary care physician: Inez Snowden Hospital Course: Diagnoses: Acute COPD exacerbation Chronic hypoxic respiratory failure Anxiety History of restless leg syndrome History of GERD Hospital course: This is a pleasant 65 years old female with past medical history of COPD/emphysema, GERD, restless leg syndrome, Anxiety Presents with progressive dyspnea over few days patient found to have acute COPD exacerbation and his been evaluated by ur coordinator. Patient was treated with IV steroids and she showed interval improvement in her dyspnea and she was cleared for discharge by ur coordinator today She denies chest pain or change in urine or bowel habits. And fever Patient was cleared for discharge by ur coordinator Patient checked for home oxygen and she qualify and delivered, wrapper caser on the case Problems and management plan were discussed with the patient and her friend Kristi over the phone upon patient request and both verbalized understanding and acceptance Patient was found stable and can be discharged home however he needs follow-up as an outpatient. Patient was instructed to follow up with PCP Dr. Snowden within one week and patient agrees Patient was instructed to follow-up with ur coordinator Dr. Patterson and 1-3 weeks and she agrees Physical exam Gen: patient is a AAOx3, no distress CVS: S1-S2, RRR, no murmur -Lungs: B/L CTA, mild scattered wheezing Abdomen: soft, no distention, no tenderness, positive bowel sounds Extremity: no leg edema or induration Time spent more than 35 minutes Patient Condition at Discharge: Stable Plan - Discharge Summary Discharge Rx Participant: No New Discharge Prescriptions: New predniSONE 0 mg PO DIRECTED 16 Days #40 tab hydrOXYzine HCL [Atarax] 25 mg PO TID PRN 10 Days #30 tab PRN Reason: Anxiety Fluticasone/Umeclidin/Vilanter [Trelegy Ellipta 100-62.5-25] 1 inhalation INHALATION DAILY 30 Days #1 each Continue Montelukast [Singulair] 10 mg PO HS Albuterol Sulfate [Proair Hfa] 2 puff INHALATION RT-Q6H PRN PRN Reason: Shortness Of Breath Albuterol Nebulized [Ventolin Nebulized] 2.5 mg INHALATION RT-QID PRN PRN Reason: Shortness Of Breath Or Wheezing Aspirin EC [Ecotrin Low Dose] 81 mg PO DAILY Fluticasone Propionate [Flovent Hfa 220 mcg] 1 puff INHALATION RT-BID PRN PRN Reason: Shortness Of Breath Esomeprazole Magnesium [NexIUM 24Hr] 20 mg PO DAILY rOPINIRole HCL [Requip] 0.5 mg PO HS Discharge Medication List Albuterol Nebulized [Ventolin Nebulized] 2.5 mg INHALATION RT-QID PRN 11/01/18 [History] Albuterol Sulfate [Proair Hfa] 2 puff INHALATION RT-Q6H PRN 11/01/18 [History] Montelukast [Singulair] 10 mg PO HS 11/01/18 [History] Aspirin EC [Ecotrin Low Dose] 81 mg PO DAILY 04/19/21 [History] Esomeprazole Magnesium [NexIUM 24Hr] 20 mg PO DAILY 04/19/21 [History] Fluticasone Propionate [Flovent Hfa 220 mcg] 1 puff INHALATION RT-BID PRN 04/19/21 [History] rOPINIRole HCL [Requip] 0.5 mg PO HS 04/19/21 [History] Fluticasone/Umeclidin/Vilanter [Trelegy Ellipta 100-62.5-25] 1 inhalation INHALATION DAILY 30 Days #1 each 04/22/21 [Rx] hydrOXYzine HCL [Atarax] 25 mg PO TID PRN 10 Days #30 tab 04/22/21 [Rx] predniSONE 0 mg PO DIRECTED 16 Days #40 tab 04/22/21 [Rx] Follow up Appointment(s)/Referral(s): [facility] [NON-STAFF] - As Needed (Supplier of home oxygen) Inez Snowden DO [Primary Care Provider] - 1-2 days Ronald Staton DO [Doctor of Osteopathic Medicine] - 1 Week [facility], [NON-STAFF] - 1-2 Days [facility] [NON-STAFF] - 1 Week Patient Instructions/Handouts: COPD (Chronic Obstructive Pulmonary Disease) (DC) Activity/Diet/Wound Care/Special Instructions: low carbohydrate 1600 kcal per day activity is restricted till you see your doctor Discharge Disposition: HOME WITH HOME HEALTH SERVICES
== END 2021-04-22 17:04 | disposition home health service (06) | DRG 191 ==
LOC: EC 15:29 → 6NMEDSUR 19:04 → OBSVTOIN 04-22 08:17
PROVIDERS: ADMIT Hospitalist; ATTEND Hospitalist
DX: J43.9 Emphysema, unspecified (principal); J96.11 Chronic respiratory failure with hypoxia; J84.10 Pulmonary fibrosis, unspecified; F03.90 Unspecified dementia, unspecified severity, without behavioral disturbance, psychotic disturbance, mood disturbance, and anxiety; Z20.822 Contact with and (suspected) exposure to COVID-19; Z87.891 Personal history of nicotine dependence; K21.9 Gastro-esophageal reflux disease without esophagitis; G25.81 Restless legs syndrome; F41.9 Anxiety disorder, unspecified; D64.9 Anemia, unspecified; Z79.82 Long term (current) use of aspirin; Z79.899 Other long term (current) drug therapy; Z99.81 Dependence on supplemental oxygen; Z87.01 Personal history of pneumonia (recurrent); Z91.011 Allergy to milk products
CPT/HCPCS: 36415; 71046; 71275; 80053; 83605; 83735; 83880; 84145; 84484; 85025; 85379; 85610; 85730; 87636; 93005; 93970; 94640; 96361; 96372; 96374; 96375; 99285

== ENCOUNTER → 2022-03-18 | Outpatient (CLI) | payer MEDICARE, OTHER ==
[2022-03-18 11:20] LABS: African American GFR (CKD) >90 (>60 ml/min/1.73 sqM); Blood Urea Nitrogen 20 mg/dL (7-17); Non-African American GFR(CKD) 86 (>60 ml/min/1.73 sqM)
--- NOTE | 2022-03-18 12:05 | CT ---
EXAMINATION TYPE: CT chest w con DATE OF EXAM: 03/18/2022 COMPARISON: 04/19/2021 HISTORY: Nonspecific abnormal finding of lung field, difficulty breathing CT DLP: 391 mGycm Automated exposure control for dose reduction was used. TECHNIQUE: CT scan of the chest is performed with IV Contrast, patient injected with 70 mL of Isovue 300. MIP I mages are created on CT scanner and reviewed. 3D reconstructed images are created on an independent w orkstation and reviewed. FINDINGS: LUNGS: The lungs are grossly clear, there is no concerning parenchymal mass or nodule identified. T here is no pleural effusion or pneumothorax seen. The tracheobronchial tree is patent. Diffuse emphy sematous changes are seen subsegmental area of consolidation in the right upper lobe posteriorly is n oted. The demonstrated air bronchograms measuring 2.2 x 1.7 cm. Additional somewhat irregular area of consolidation superior segment left lower lobe axial image 34 measuring 1.4 cm. 6 mm nodule superior segment right lower lobe axial image 40. There are multifocal somewhat irregular densities also seen within the left lower lobe on axial image 42, 40 and 39 There is a 5 mm subpleural nodule right lower lobe axial image 44. Additional nodular density seen in the right upper lobe on axial image 50 measuring 9 mm. Along the right lower lobe there is irregular subsegmental areas of consolidation. MEDIASTINUM: There is a borderline pathologic nodes seen in the right hilum axial image 32 measuring 1 cm in short axis.. No pericardial effusion is seen. Coronary artery calcification seen. The aort a is normal-caliber with mild atherosclerotic changes. Small hiatal hernia noted. OTHER: Tiny retroperitoneal lymph nodes seen in the upper abdomen. Hypertrophic degenerative change of the spine.. IMPRESSION: 1. Diffuse emphysematous changes with stable 6 mm pulmonary nodule right lower lobe. However, there i s a 9 mm nodule in right upper lobe which previously measured 5 mm. 2. There now are somewhat irregular density seen within the bilateral lung chua which are either ne w or have progressed from prior exam. Lowe, these could represent areas of scarring or irregular cons olidation\atelectasis recommended PET scan for further evaluation to exclude more aggressive etiology . 3. Borderline right hilar adenopathy measuring 1 cm in short axis similar to the prior exam.
== END | disposition home or self-care (01) ==
LOC: RADCTMAIN 10:34
PROVIDERS: ATTEND Internal Medicine Critical Care Medicine
DX: J43.9 Emphysema, unspecified (principal); J98.4 Other disorders of lung; R91.8 Other nonspecific abnormal finding of lung field; R59.0 Localized enlarged lymph nodes
CPT/HCPCS: 82565; 84520; 71260; 36415; Q9967